=== PATIENT | female | born 1955 | race Caucasian/White ===

== ENCOUNTER → 2020-07-07 | Outpatient (CLI) | payer OTHER | END | disposition home or self-care (01) | LOC: OIH 17:48 | PROVIDERS: ATTEND Emergency Medicine | DX: Z13.6 Encounter for screening for cardiovascular disorders (principal) | CPT/HCPCS: 75571 ==

== ENCOUNTER → 2024-03-15 | Outpatient (CLI) | payer MEDICARE ==
[~2024-03-15] MED LIST: ASPI-1197 PO; ATOR10 PO; CYCL-309 PO; HYDR-4060 PO; IBUP-2070 PO; ondanSETRON 4MG TABLET PO
--- NOTE | 2024-03-15 14:48 | HMCIMG ---
CT UPPER EXT W/O CONTRAST REASON: DISP FX OF UPPER END OF LEFT HUMERUS COMPARISON: None TECHNIQUE: Axial images are obtained through the left shoulder with bone and soft tissue window presentation. 2-D and 3-D multiplanar reconstruction images were then performed. FINDINGS: There is a comminuted and displaced fracture of the proximal left humerus. The humeral head is displaced to medially and rotated medially in comparison to the proximal shaft. The greater tuberosity is as a separate fragment. There appears to be some impaction of the humeral head on the femoral shaft component. The scapula appears intact. The clavicle appears intact. AC joint appears unremarkable. IMPRESSION: 1. Comminuted and displaced fracture of the proximal left humerus as described above.
== END | disposition home or self-care (01) ==
LOC: RAH 13:32
PROVIDERS: ATTEND Student in an Organized Health Care Education/Training Program
DX: S42.292A Other displaced fracture of upper end of left humerus, initial encounter for closed fracture (principal); X58.XXXA Exposure to other specified factors, initial encounter; Y93.89 Activity, other specified; Y92.89 Other specified places as the place of occurrence of the external cause; Y99.8 Other external cause status
CPT/HCPCS: 73200